=== PATIENT | female | born 1970 | race Caucasian/White ===

== ENCOUNTER 2020-05-01 06:46 | Emergency (ER) | payer OTHER ==
[~2020-05-01] VITALS: Ht 160 cm; Wt 63.5 kg
[~2020-05-01 06:46] MED LIST: A/F PAIN RELIE500 M1 PO; ALLEGRA; AMBIEN PO; MECLIZINE HCL25 M1 PO; VALIUM2 MG PO
[2020-05-01] MEDS ORDERED: VITAMIN D21250 MCG PO (07:02)
[2020-05-01] MEDS ORDERED: RESTASIS1 EACH OPHTHALMIC (07:03)
[2020-05-01] MEDS ORDERED: RETIN-A15 GM (07:03)
[2020-05-01] MEDS ORDERED: IBUPROFEN200 M1 PO (07:03)
[2020-05-01] MEDS ORDERED: SPIRONOLACTONE25 M1 PO (07:04)
[2020-05-01] MEDS ORDERED: RITALIN10 MG (07:04)
[2020-05-01 08:17] LABS: ABSOLUTE NEUTROPHILS 5.3 thou/uL (1.4-8.2); BASOPHILS 0.7 % (0.0-2.0); EOSINOPHILS 2.1 % (0.0-3.0); HEMATOCRIT 40.2 % (37.0-47.0); HEMOGLOBIN 13.8 gm/dL (12.0-15.0); LYMPHOCYTES 18.9 % (24.0-44.0); MCH 32.5 pg (26.0-34.0); MCHC 34.2 g/dL (28.0-37.0); MONOCYTES 6.5 % (1.0-8.0); PLATELET COUNT 203 thou/uL (150-400); POLYS 71.8 % (36.0-66.0); RBC 4.23 mil/uL (4.20-5.00); RDW 12.5 % (10.5-14.5); WBC 7.4 thou/uL (4.0-11.0)
[2020-05-01 08:25] LABS: CALCIUM 9.2 mg/dL (8.5-10.1); CREATININE 0.9 mg/dL (0.6-1.0); POTASSIUM 3.6 mmol/L (3.5-5.1)
[2020-05-01 08:31] LABS: ALBUMIN 3.9 g/dL (3.4-5.0); DIRECT BILIRUBIN 0.1 mg/dL (<0.1-0.2); TOTAL BILIRUBIN 0.5 mg/dL (0.2-1.0); TOTAL PROTEIN 7.2 g/dL (6.4-8.2)
[2020-05-01 08:32] LABS: BE(vivo) 3.1 mmol/L (-2 to +3); PCO2 VENOUS 49.4 mmHg (41.0-51.0); PO2 VENOUS 45.3 mmHg (35.0-45.0)
[2020-05-01 09:51] LABS: URINE BILIRUBIN NEGATIVE (Negative); URINE BLOOD TRACE (Negative); URINE CLARITY CLOUDY; URINE COLOR YELLOW; URINE GLUCOSE-RANDOM* NEGATIVE (Negative); URINE KETONES TRACE (Negative); URINE LEUKOCYTES-REFLEX NEGATIVE (Negative); URINE NITRITE-REFLEX NEGATIVE (Negative); URINE PROTEIN (DIPSTICK) NEGATIVE (Negative); URINE SPECIFIC GRAVITY >= 1.030 (1.005-1.035); URINE UROBILINOGEN 0.2 E.U./dl (0.2-1.0)
[2020-05-01] MEDS ORDERED: ZOFRAN ODT4 MG PO (10:29)
[2020-05-01 10:37] VITALS: BP 117/68
== END 2020-05-01 10:38 | disposition home or self-care (01) ==
LOC: ER 06:46
PROVIDERS: Emergency Medicine
DX: T67.8XXA Other effects of heat and light, initial encounter (principal); R10.9 Unspecified abdominal pain; R11.2 Nausea with vomiting, unspecified; Z79.899 Other long term (current) drug therapy; Z88.5 Allergy status to narcotic agent; Z88.8 Allergy status to other drugs, medicaments and biological substances; Z91.041 Radiographic dye allergy status; X58.XXXA Exposure to other specified factors, initial encounter; Y93.89 Activity, other specified; Y92.89 Other specified places as the place of occurrence of the external cause; Y99.8 Other external cause status